=== PATIENT | male | born 1975 | race African-American/Black ===

== ENCOUNTER 2020-10-05 22:20 | Emergency (ER) | payer SELFPAY ==
[2020-10-06] MEDS ORDERED: IBUPROFEN 600 MG TABLET PO ONE (00:43)
--- NOTE | 2020-10-06 01:17 | ER Document Report ---
HPI - HPI Time Seen by Provider: 10/06/20 00:39 Pain Level: 4 Context: Patient is a 45-year-old male presents emergency department with a chief complaint of left ankle pain. Last night, he slipped on a piece of ice and ended up falling and hurting his left ankle. States that he is unable to bear weight on it. He is able to wiggle his toes. - ROS Systems Reviewed and Negative: Yes All other systems reviewed and negative - CONSTITUTIONAL Constitutional: DENIES: Fever, Chills - RESPIRATORY Respiratory: DENIES: Trouble Breathing, Coughing - MUSCULOSKELETAL Musculoskeletal: REPORTS: Extremity pain - left ankle, Swelling - left ankle - DERM Skin Color: Normal Skin Problems: None Past Medical History - General Information source: Patient - Social History Smoking Status: Unknown if Ever Smoked Family History: Reviewed & Not Pertinent - Past Medical History Cardiac Medical History: Reports: Hx Hypertension Vertical Provider Document - CONSTITUTIONAL Agree With Documented VS: Yes Exam Limitations: No Limitations General Appearance: No Apparent Distress - HEENT HEENT: Atraumatic, Normocephalic, PERRLA - RESPIRATORY Respiratory: Breath Sounds Normal, No Respiratory Distress - CARDIOVASCULAR Cardiovascular: Regular Rate, Regular Rhythm Pulses: Normal: Posterior tibial, Dorsalis pedis - MUSCULOSKELETAL/EXTREMETIES Musculoskeletal/Extremeties: FROM, Tender - Left ankle at lateral malleolus area. - NEURO Level of Consciousness: Awake, Alert, Appropriate Motor/Sensory: No Motor Deficit, No Sensory Deficit - DERM Integumentary: Warm, Dry, No Rash Course - Re-evaluation Re-evalutation: 10/06/20 02:32 Ankle x-ray is unremarkable with no fracture noted. Will place the patient in a knee and ankle stirrup and Brown wrap. We will also give him crutches. Strict patient on rest, ice, elevation, and compression. Capillary refill less than 3 seconds. Dorsalis pedis and posterior tibial pulses 2+. No vascular compromise noted. Follow-up precautions were given. Verbal discharge instructions were gi wilda to the patient. They verbalized understanding. They are stable for discharge. - Vital Signs Vital signs: Temp Pulse Resp BP Pulse Ox 97.8 F 87 16 161/103 H 98 10/06/20 00:40 10/06/20 00:40 10/06/20 00:40 10/06/20 00:40 10/06/20 00:40 - Laboratory Results Critical Laboratory Results Reviewed: No Critical Results - Radiology Results Critical Radiology Results Reviewed: No Critical Results Discharge - Discharge Clinical Impression: Left ankle sprain Qualifiers: Encounter type: initial encounter Involved ligament of ankle: unspecified ligament Qualified Code(s): S93.402A - Sprain of unspecified ligament of left ankle, initial encounter Condition: Stable Disposition: HOME, SELF-CARE Instructions: Soft Ankle Splint ([facility]), Sprained Ankle ([facility]) Additional Instructions: Ankle Stirrup Splint You are to use an ankle brace called a stirrup splint. This type of brace allows you to place greater stresses on the ankle without risk of re-injury, and is often used for more severe ankle injuries such as avulsion fractures and ligament ruptures. The splint can be worn over a sock or tape. For proper support, wear the splint with a shoe over it. It's important that the splint fit properly. Adjust the heel tension, if needed. If your splint has air bladders, peel back the bottom of each air bladder, then move the Velcro attachment of the heel strap up or down. Air bladder pressure can be adjusted by pulling up the valve at the top, threading the air tube down into the main bladder, then blowing air into the bladder or squeezing it out. The two sides of the stirrup can be moved forward or back on your ankle by changing the attachment of the main straps. If you are unable to use the ankle comfortably in the splint, return for re-evaluation. Use the crutches and splint. Rest, ice, elevate your leg. Take ibuprofen 600 mg every 6 hours for pain Forms: Return to Work
--- NOTE | 2020-10-06 02:15 | RADIOLOGY REPORT (SQ) ---
Left ankle x-ray three views on 10/06/2020 at 1:23 AM CLINICAL INDICATION: Left ankle pain after rolling foot COMPARISON: None FINDINGS: The ankle mortise is intact. There are no fractures. Visualized joints are well aligned. No bony abnormality is noted. IMPRESSION: No acute abnormality.
== END 2020-10-06 02:54 | disposition home or self-care (01) ==
LOC: ER 22:20
DX: S93.402A Sprain of unspecified ligament of left ankle, initial encounter (principal); W10.9XXA Fall (on) (from) unspecified stairs and steps, initial encounter; I10 Essential (primary) hypertension
CPT/HCPCS: 99283